=== PATIENT | female | born 1970 | race Two or more races ===

== ENCOUNTER → 2024-10-01 | Outpatient (CLI) | payer MEDICAID, SELFPAY ==
--- NOTE | 2024-10-01 | XR_ITS ---
Examination: Bilateral wrists 6 views Technique: AP oblique lateral each wrist total 6 views Exam date and time: October 01, 2024 1515 hrs. Indications: Bilateral wrist pain months. Findings: Moderate osteopenia Mild diffuse narrowing radiocarpal, intercarpal, carpometacarpal joints,. Mild to moderate osteoarthritis first carpometacarpal joints No fracture involving either wrist No avascular necrosis No erosive arthritis Impression: Mild diffuse narrowing radiocarpal intercarpal and carpometacarpal joints Mild to moderate osteoarthritis first carpometacarpal joints
--- NOTE | 2024-10-01 14:25 | XR_ITS ---
Examination: Bilateral hands, 6 views. Technique: AP, Oblique, Lateral each hand total 6 views Date and time of exam: October 01, 2024 1510 hrs. Indications: Bilateral hand pain 5 years. Findings: Moderate osteopenia Mild diffuse narrowing joints of the wrists and hands bilaterally No erosive arthritis No fractures Mild osteoarthritis interphalangeal joints Mild to moderate osteoarthritis first carpometacarpal joints Impression: Mild diffuse narrowing joints of the wrists and hands bilaterally Mild osteoarthritis interphalangeal joints Mild to moderate osteoarthritis first carpometacarpal joints
== END | disposition home or self-care (01) ==
LOC: CDIM 14:08
PROVIDERS: PCP Nurse Practitioner Gerontology; Referring Provider Nurse Practitioner Gerontology; Visit Provider Nurse Practitioner Gerontology
DX: M19.032 Primary osteoarthritis, left wrist (principal); M19.031 Primary osteoarthritis, right wrist; M25.832 Other specified joint disorders, left wrist; M25.831 Other specified joint disorders, right wrist
CPT/HCPCS: 73110; 73130

== ENCOUNTER → 2024-10-15 | Outpatient (CLI) | payer MEDICAID, SELFPAY ==
--- NOTE | 2024-10-15 09:00 | XR_ITS ---
Examination: MRI of brain without intravenous contrast. MRI brain with intravenous contrast. Date and time of exam:October 15, 2024 0910 hrs. Indications: Left-sided headaches numbness and headache blurred vision dizziness months Technique: Multiple axial and sagittal images of the brain to been obtained. Siemens high-resolution 1.52 Sade short bore scanner utilized. Sagittal sections, T1 weighted images, TR 500, TE 14, are performed. Axial sections proton-density and T2-weighted images have been obtained. Inversion recovery axial images, TR 9260, TE 111, TR 2500. Diffusion weighted images, axial sections, TR 4800, TE 128, B value 1000. Axial sections, ADC map, TR 4800, TE 128. Axial and coronal images were also obtained post 16 cc gadolinium administered intravenously. Findings:: Enlargement of the sella turcica is not present. The optic chiasm and infundibular stalk are not remarkable. There is no localized enlargement of the medulla or sujatha. Fourth ventricle and cerebellar tonsils appear normal in position. No subacute area of hemorrhage density is seen. Fourth ventricle is midline. Mass in the cerebellopontine angle region is not evident. 7th and 8th nerve complexes exhibit symmetry Globes are symmetrical Orbital musculature including medial lateral rectus muscles do not exhibit abnormality Increased white matter signal is again noted Effacement of the cortical sulcal markings is not identified. Mass effect upon the ventricular system is not identified. Diffusion-weighted images demonstrate no focus of restricted diffusion Contrast images demonstrate no abnormal enhancement Impression: No significant change in prominent punctate foci increased signal in the white matter, demyelinating disease
--- NOTE | 2024-10-15 09:45 | XR_ITS ---
Examination: MRI cervical spine, without intravenous contrast. MRI cervical spine , with intravenous contrast. Exam date and time: October 15, 2024 0910 hrs. Indications: Headaches neck pain blurred vision beginning years ago Technique: Multiple axial, sagittal and coronal images of the cervical spine have been obtained with the Siemens high-resolution 1.5 Sade MRI scanner. Images obtained included T2 weighted fat suppressed sagittal sections, TR 3500, TE 46, T2 weighted coronal fat suppressed images, TR 3050, TE 84, T2-weighted transverse fat suppressed images, TR 30-60, TE 63, proton density transverse images, TR 4720, TE 46, and T1 weighted coronal images, TR 560, TE 13. Axial, sagittal and coronal images are obtained post intravenous injection 60 and cc gadolinium. Findings: Adequate alignment cervical vertebral bodies No cervical fracture Diffuse cervical disc desiccation Intact odontoid No localized enlargement cervical cord Postcontrast images demonstrate no abnormal osseous or epidural enhancement C3-C4 4 mm central subarticular osteophyte disc complex indenting the ventral margin cervical cord with advanced bilateral neural foraminal stenosis C4-C5 5 mm central subarticular osteophyte disc complex, severe spinal stenosis, indenting the cervical cord with advanced bilateral neural foraminal stenosis C5-C6 5 mm central subarticular osteophyte disc complex, severe spinal stenosis, indenting the cervical cord with advanced bilateral neural foraminal stenosis C6-C7 6 mm central subarticular osteophyte disc complex, severe spinal stenosis, indenting the cervical cord with advanced bilateral neural foraminal stenosis C7-T1 no disc protrusion Impression: Severe spinal stenosis C4-C5, C5-C6, C6-C7
== END | disposition home or self-care (01) ==
LOC: SMRI 08:40
PROVIDERS: PCP Nurse Practitioner Family; Referring Provider Nurse Practitioner Family; Visit Provider Nurse Practitioner Family
DX: G37.9 Demyelinating disease of central nervous system, unspecified (principal); R90.82 White matter disease, unspecified
CPT/HCPCS: 70553; 72156; A9579

== ENCOUNTER → 2024-10-16 | Outpatient (CLI) | payer MEDICAID, SELFPAY ==
--- NOTE | 2024-10-16 13:45 | XR_ITS ---
Examination: MRI thoracic spine, without intravenous contrast. MRI thoracic spine with intravenous contrast Indications: Upper back pain months Exam date and time: October 16, 2024 1421 hrs. Technique: Multiple axial, sagittal and coronal images of the thoracic spine have been obtained with the Siemens high-resolution 1.5 Sade MRI scanner. Images obtained included T2 weighted fat suppressed sagittal sections, TR 3500, TE 46, T2 weighted coronal fat suppressed images, TR 3050, TE 84, T2-weighted transverse fat suppressed images, TR 30-60, TE 63, proton density transverse images, TR 4720, TE 46, and T1 weighted coronal images, TR 560, TE 13. Axial, sagittal and coronal images are obtained post intravenous injection 15 cc gadolinium. Findings: Adequate alignment thoracic vertebral bodies Mild to moderate diffuse thoracic disc narrowing Thoracic disc desiccation Axial images demonstrate no focal thoracic disc protrusion Postcontrast images demonstrate no abnormal osseous epidural or thoracic cord enhancement Impression: Mild to moderate diffuse thoracic degenerative disc disease
--- NOTE | 2024-10-16 14:30 | XR_ITS ---
Examination: MRI of lumbar spine without intravenous contrast. MRI lumbar spine , with intravenous contrast. Exam date and time: October 16, 2024 1421 hrs. Indications: Lower back pain months Technique: Multiple axial, sagittal and coronal images of the lumbar spine have been obtained with the Siemens high-resolution 1.5 Sade MRI scanner. Images obtained included T2 weighted fat suppressed sagittal sections, TR 3500, TE 46, T2 weighted coronal fat suppressed images, TR 3050, TE 84, T2-weighted transverse fat suppressed images, TR 30-60, TE 63, proton density transverse images, TR 4720, TE 46, and T1 weighted coronal images, TR 560, TE 13. Axial, sagittal and coronal images are obtained post intravenous injection 15 cc gadolinium. Findings: Adequate alignment lumbar vertebral bodies No lumbar fracture Disc desiccation lower 2 lumbar levels Postcontrast images demonstrate no abnormal enhancing epidural osseous or conus medullaris enhancement L5-S1 4 mm left foraminal disc bulge but no ganglionic compression More cephalad levels unremarkable Impression: Degenerative disc disease at the lower 2 lumbar levels L5-S1 4 mm left foraminal disc bulge but no ganglionic compression
== END | disposition home or self-care (01) ==
PROVIDERS: PCP Nurse Practitioner Family; Referring Provider Nurse Practitioner Family; Visit Provider Nurse Practitioner Family
DX: M51.34 Other intervertebral disc degeneration, thoracic region (principal); M51.369 Other intervertebral disc degeneration, lumbar region without mention of lumbar back pain or lower extremity pain; M51.379 Other intervertebral disc degeneration, lumbosacral region without mention of lumbar back pain or lower extremity pain
CPT/HCPCS: 72157; 72158; A9579

== ENCOUNTER → 2024-10-19 | Outpatient (CLI) | payer MEDICAID, SELFPAY ==
--- NOTE | 2024-10-19 14:21 | XR_ITS ---
Examination: PA lateral chest 2 views Technique: Upright PA lateral chest 2 views Exam date and time: October 19, 2024 at 1457 hrs. Indications: Preop Findings: Normal heart size. Lungs are clear. Osseous structures are intact. Impression: No active disease
== END | disposition home or self-care (01) ==
LOC: CDIM 13:47
PROVIDERS: PCP Nurse Practitioner Family; Referring Provider Nurse Practitioner Family; Visit Provider Nurse Practitioner Family
DX: R00.1 Bradycardia, unspecified (principal)
CPT/HCPCS: 71046

== ENCOUNTER → 2024-12-14 | Outpatient (CLI) | payer MEDICAID, SELFPAY ==
--- NOTE | 2024-12-14 14:15 | XR_ITS ---
Examination: Screening digital mammography, bilateral Computer aided detection 3-D breast Tomosynthesis, bilateral Date and time of exam: December 14, 2024 1438 hours Compared to mammograms dating to June 19, 2019 Indication: Screening Technique: Nonmagnified MLO, CC views of the breasts to been obtained, reconstructed from 3-D Tomosynthesis images. R2 computer aided detection program utilized for evaluation of suspicious masses and/or abnormal calcifications. 3-D Tomosynthesis images obtained. Findings: The breasts are heterogeneously dense, which may obscure small masses Benign calcifications Breast biopsy marker inner right breast 12 mm focal asymmetry retroareolar region right breast Impression: BI-RADS Category 0: Incomplete: Need additional imaging evaluation 12 mm focal asymmetry retroareolar region right breast, recommend follow-up spot tomographic views of this asymmetry as well as bilateral breast sonography to complete the workup
== END | disposition home or self-care (01) ==
LOC: CDIM 14:31
PROVIDERS: Referring Provider Nurse Practitioner Family; Visit Provider Nurse Practitioner Family
DX: Z12.31 Encounter for screening mammogram for malignant neoplasm of breast (principal); N64.89 Other specified disorders of breast
CPT/HCPCS: 77063; 77067